=== PATIENT | male | born 1970 | race Caucasian/White ===

== ENCOUNTER 2017-03-11 20:03 | Emergency (ER) | payer MEDICAID ==
[~2017-03-11] VITALS: Ht 157.5 cm; Wt 77.1 kg
[2017-03-11 20:17] VITALS: BP 157/90
--- NOTE | 2017-03-11 20:27 | NUR ---
Patient to OF.
--- NOTE | 2017-03-11 20:30 | NUR ---
46Y M BIB SELF C/O LOW BACK PAIN RADIATING TO HIS TESTICLES FOR 2 DAYS. PT DENIES ANY MEDICAL HX, NO ALLERGIES. PT DENIES SOB, NVD AT THE MOMENT.
[2017-03-11] MEDS ORDERED: KETOROLAC 30 MG/ML VIAL IM ONE (21:00)
--- NOTE | 2017-03-11 21:16 | NUR ---
Patient back from [place].
--- NOTE | 2017-03-11 22:20 | NUR ---
Patient discharged with v/s stable. Written and verbal after care instructions given and explained. Patient alert, oriented and verbalized understanding of instructions. Ambulatory with steady gait. All questions addressed prior to discharge. ID band removed. Patient advised to follow up with PMD. Rx of FLOMAX 0.4MG, MOTRIN 600MG, AND DOXYCYCLINE 100MG given. Patient educated on indication of medication including possible reaction and side effects. Opportunity to ask questions provided and answered.
[2017-03-11 22:22] VITALS: BP 141/82
== END 2017-03-11 22:20 | disposition home or self-care (01) ==
LOC: MED 20:03
DX: N41.9 Inflammatory disease of prostate, unspecified (principal)
CPT/HCPCS: 76870; 82948; 96372; 99284; J1885